=== PATIENT | female | born 1965 | race Caucasian/White ===

== ENCOUNTER 2023-09-28 16:48 | Outpatient (CLI) | payer BC, SELFPAY | END 2023-09-28 16:49 | disposition home or self-care (01) | LOC: NFLDREF 10-18 06:14 | PROVIDERS: Visit Provider Physician Assistant | DX: R10.9 Unspecified abdominal pain (principal); N39.0 Urinary tract infection, site not specified | CPT/HCPCS: 87086; 87186 ==

== ENCOUNTER 2024-06-30 08:03 | Outpatient (CLI) | payer BC, SELFPAY | END 2024-06-30 08:04 | disposition home or self-care (01) | LOC: NFLDREF 07-02 06:34 | PROVIDERS: Visit Provider Physician Assistant Medical | DX: E78.5 Hyperlipidemia, unspecified (principal); I10 Essential (primary) hypertension; E03.9 Hypothyroidism, unspecified | CPT/HCPCS: 80053; 80061; 84443 ==

== ENCOUNTER 2025-04-23 13:13 | Outpatient (CLI) | payer BC, SELFPAY | END 2025-04-23 13:14 | disposition home or self-care (01) | LOC: NFLDREF 04-29 09:15 | PROVIDERS: PCP Physician Assistant Medical; Referring Provider Physician Assistant Medical; Visit Provider Physician Assistant Surgical | DX: N30.01 Acute cystitis with hematuria (principal) | CPT/HCPCS: 87086 ==